=== PATIENT | female | born 1980 | race Two or more races ===

== ENCOUNTER 2025-04-09 16:13 | Inpatient (IN) | payer MEDICAID ==
[~2025-04-09] VITALS: Ht 175.3 cm; Wt 80.0 kg
[2025-04-09 17:19] LABS: Hematocrit 21.6 % (36.0-46.0); Hemoglobin 7.3 g/dL (12.2-16.2); Mean Corpuscular Hemoglobin 30.3 pg (28.0-32.0); Mean Corpuscular Volume 90.3 fL (80.0-100.0); Nucleated Red Blood Cells % 0.1 %
[2025-04-09] MEDS: SODIUM CHLORIDE 0.9% 1,000 ML IV ONE (17:30)
[2025-04-09 17:37] LABS: Alanine Aminotransferase 15 U/L (7-40); Albumin 3.8 g/dL (3.2-4.8); Alkaline Phosphatase 63 U/L (46-116); Anion Gap 8 (5-15); BUN/Creatinine Ratio 6.5 (10.0-20.0); Calcium 8.8 mg/dL (8.7-10.4); Carbon Dioxide 30 mmol/L (20-31); Sodium 145 mmol/L (136-145); Total Protein 5.9 g/dL (5.7-8.2)
[2025-04-09 17:39] LABS: Bilirubin, Total 0.2 mg/dL (0.2-1.0); Blood Urea Nitrogen 6 mg/dL (9-23); Chloride 107 mmol/L (98-107); Glucose 110 mg/dL (74-106); Potassium 3.5 mmol/L (3.5-5.1)
--- NOTE | 2025-04-09 18:06 | ED.PDOC ---
History of Present Illness HPI Comments HPI: Poor Historian. 44-year-old female sent by her home health nurse for low hemoglobin obtained yesterday of 6.4. Patient states in the last five days she has been feeling very weak with the exertional shortness of breath with minimal efforts at tachycardic with a exertion. Patient appears very pale for the last one-week. Denies bleeding from anywhere however she has black stool and is on iron pills daily. Patient is on Eliquis for PE. Patient had multiple sepsis and multiple hospitalizations or complications the last few months at [facility]. Patient never received any blood transfusions in the past. Patient complains of some fever. Past Medical History: Pulmonary embolus on Eliquis, septic knee, sepsis, tachycardic, hypertension, chronic pain syndrome, melena, oxygen dependent at [facility], respiratory failure, Past Surgical History: Three knee surgeries, back surgeries, spinal cord stimulator. Medication: Eliquis and iron pills daily. REVIEW OF SYSTEMS: CONSTITUTIONAL: Denies acute: diaphoresis, chills, HEAD: Denies acute: headache, photophobia Eyes: Denies acute: Double vision, vision loss, eye pain, eye discharge. EARS: Denies acute: tinnitus, hearing loss, ear discharge, ear pain, THROAT: Denies acute: sore throat, swelling, difficulty swallowing , pain with swallowing, change in voice. NECK: Denies acute: neck pain, neck swelling, stiff neck. HEART: Denies acute : chest pain, palpitations, LUNGS: Denies acute: wheezing, cough, hemoptysis ABDOMEN: Denies acute: abdominal pain, Nausea, Vomiting, diarrhea, hematemesis, hematochezia SKIN: Denies acute: rash, redness, lesions, itchiness. EXTREMITIES: Denies acute: calf pain, numbness, tingling, weakness, denies pain in extremity. Denies acute: Low back pain. Neuro: Denies acute: focal neurological deficit, motor or sensory focal neurological deficit, tremors, seizure like activity, confusion, dizziness, change in mental status, loss of bowel or bladder function, cauda equina like symptoms. : Denies acute: dysuria, hematuria, flank pain, increase in urinary frequency. PSYCH: Denies acute: hallucination, suicidal ideation, homicidal ideation. FEMALE: Denies acute: abnormal vaginal bleeding, foul odor, unusual discharge. PHYSICAL EXAM: General: ----moderate----acute distress, awake and alert. Head: normocephalic, atraumatic. Neck: supple, trachea is midline, no swelling. Throat: Normal phonation. Eyes:, no erythema, no purulent discharge, no proptosis, no icterus. Heart: regular rate, regular rhythm, no significant murmur appreciated. Lungs: no apparent respiratory distress, Able to speak in full sentences. No wheezing, no rhonchi, no crackles. No stridors Clear to auscultation bilaterally. Abdomen: non tender to palpation, non distended, soft, no guarding, no rebound, + bowel sounds. Neuro: Awake, Alert, oriented to name, self, situation, follows commands GCS=15. Speech is normal. Skin: no petechia, no purpura, no cyanosis, noted-pale, not jaundice. Lower extremities: --no - Pitting edema no deformity, no focal swelling, no calf TTP. Patient is wearing a right knee immobilizer ambulating with a cane Makes eye contact. moves all four extremities. Face: no apparent facial droop. ED COURSE: DISCLAIMER: This medical document was created using an electronic medical record system with voice recognition software and computerized dictation system. Although this document has been carefully reviewed, there might still be some phonetic and typographical errors. Occasional wrong-word or "sound-alike" substitutions may have occurred due to the inherent limitations of voice recognition software. These areas are purely typographical due to imperfections of the software programs and do not reflect any compromise in the patient's medical care. Please read the chart carefully and recognize, using context, where these substitutions have occurred. Chief Complaint: Abnormal LAB's Time Seen by MD: 16:53 Reviewed Notes: Allergies Allergies: Coded Allergies: Tramadol (Verified Allergy, Unknown, 04/09/25) Home Meds Reported Medications Eszopiclone (Eszopiclone) 2 Mg Tab, 2 MG PO for FOR SLEEP, TAB 04/10/25 Oxycodone W/ Acetaminophen (Percocet 5/325MG) 1 Tab Tb, 1 TAB PO BID, #60 TAB 04/10/25 Fluoxetine HCl (Fluoxetine) 60 Mg Tab, 20 MG PO, TAB 04/10/25 Alprazolam (Xanax) 0.5 Mg Tb, 1 TAB PO BID, #60 TAB 04/10/25 Ferrous Sulfate (Iron (Ferrous Sulfate)) 50 Mg Tab, 50 MG PO, TAB 04/10/25 Cholecalciferol (VITAMIN D) 5,000 Unit Tab, 5000 UNIT OR, TAB 04/10/25 Morphine Sulfate (Morphine Sulfate) 15 Mg Tab, 1 TAB PO BID, #60 TAB 04/10/25 Furosemide (Lasix) 20 Mg Tb, 1 TAB PO DAILY, #90 TAB 1 Refill 04/10/25 Baclofen (Baclofen) 10 Mg Tab, 10 MG PO Q8HR for 30 Days, MG 04/10/25 Pregabalin (Lyrica) 150 Mg Cap, 1 CAP PO BID, #60 CAP 5 Refills 04/10/25 Apixaban Base (ELIQUIS) 5 Mg Tab, 5 MG PO BID, TAB 04/10/25 Polyethylene Glycol 3350 (Miralax) 17 Gm Pow, 17 GM PO, POW 04/10/25 Sennosides (Senna) 8.6 Mg Cap, 8.6 MG PO, CAP 04/10/25 Atorvastatin Calcium (Lipitor) 20 Mg Tab, 1 TAB PO DAILY, #90 TAB 1 Refill 04/10/25 Information Source: Patient Mode of Arrival: Ambulatory Was a procedure done? Was a procedure done?: No Differential Dx Considerations may include: DDx include ACS, unstable angina, anxiety, PE, pneumothroax, neoplasm, cardiac ischemia, COPD, asthma, CHF, pleural effusion, tobacco abuse, pneumonia, hypoxia, hypercapnia, anemia., infection/sepsis., pulmonary edema. Asthma, Cardiac tamponade, infection. As far as anemia: chronic disease, GI bleed, blood loss, neoplasm, X-Ray, Labs, Meds, VS Vital Signs Date Time Temp Pulse Resp B/P (MAP) Pulse Ox O2 Delivery O2 Flow Rate FiO2 04/09/25 18:31 98.3 82 18 132/78 (96) 97 98.3 04/09/25 16:14 98.2 110 18 121/81 97 98.2 Lab Test 04/09/25 18:29 04/09/25 17:05 Range/Units Lactic Acid Level 0.9 0.4-2.0 mmol/L Troponin I High Sensitivity < 3 L < 3 L </=34 ng/L White Blood Count 4.3 L 4.4-10.8 10^3/uL Red Blood Count 2.40 L 4.0-5.20 10^6/uL Hemoglobin 7.3 L 12.2-16.2 g/dL Hematocrit 21.6 L 36.0-46.0 % Mean Corpuscular Volume 90.3 80.0-100.0 fL Mean Corpuscular Hemoglobin 30.3 28.0-32.0 pg Mean Corpuscular Hemoglobin Concent 33.5 32.0-36.0 g/dL Red Cell Distribution Width 17.3 H 11.8-14.3 % Platelet Count 302 140-450 10^3/uL Mean Platelet Volume 7.8 6.9-10.8 fL Neutrophils (%) (Auto) 46.8 37.0-80.0 % Lymphocytes (%) (Auto) 38.5 10.0-50.0 % Monocytes (%) (Auto) 6.9 0.0-12.0 % Eosinophils (%) (Auto) 7.0 0.0-7.0 % Basophils (%) (Auto) 0.8 0.0-2.0 % Neutrophils # (Auto) 2.0 1.6-8.6 10 ^3/uL Lymphocytes # (Auto) 1.7 0.4-5.4 10 ^3/uL Monocytes # (Auto) 0.3 0-1.3 10 ^3/uL Eosinophils # (Auto) 0.3 0-0.8 10 ^3/uL Basophils # (Auto) 0 0-0.2 10 ^3/uL Nucleated Red Blood Cells 0.1 % Sodium Level 145 136-145 mmol/L Potassium Level 3.5 3.5-5.1 mmol/L Chloride Level 107 98-107 mmol/L Carbon Dioxide Level 30 20-31 mmol/L Anion Gap 8 5-15 Blood Urea Nitrogen 6 L 9-23 mg/dL Creatinine 0.92 0.550-1.02 mg/dL Glomerular Filtration Rate Calc 78 >90 mL/min BUN/Creatinine Ratio 6.5 L 10.0-20.0 Serum Glucose 110 H 74-106 mg/dL Calcium Level 8.8 8.7-10.4 mg/dL Magnesium Level 1.9 1.6-2.6 mg/dL Total Bilirubin 0.2 0.2-1.0 mg/dL Aspartate Amino Transferase (AST) 16 13-40 U/L Alanine Aminotransferase (ALT) 15 7-40 U/L Alkaline Phosphatase 63 46-116 U/L Total Protein 5.9 5.7-8.2 g/dL Albumin 3.8 3.2-4.8 g/dL Time of 1ST Reevaluation: 00:00 Reevaluation 1ST: Unchanged Patient Education/Counseling: Diagnosis, Treatment Family Education/Counseling: Other Comments MDM: patient presented with the above HPI.----dyspnea/symptomatic anemia--workup was initiated. patient was found with the above mentioned diagnosis. the following medications were ordered: please refer to order lists of meds and tests obtained by myself Dr. Davila. Patient ED course and VS have been stabilized. Patient has been reassessed in [facility] ED and remained in a stable condition. Pertinent incidental findings were discussed with the patient and/or family. Patient/family voices understanding and is agreeable with plan. Patient has been observed in the ED adequate length of time to insure improvement/stability. Escalation of care considered: Consideration of escalation to observation or admission Patient was ADMITTED to the medicine team for further evaluation and treatment of their presentation. All the reports of any imaging studies that were ordered by myself were reviewed by myself. SEPSIS Sepsis Screen Date sepsis recognized/suspect: Apr 09, 2025 Time Sepsis recognized/suspect: 1618 Recent Procedure: No On Antibiotic Therapy: No Respiratory Rate >20: No Heart Rate >90: Yes Temp<36 C (96.8 F) or >38.3 C: No SBP <90 or MAP <65 mmHG: No New Acute Mental Status Change: No Is the patient on CPAP, BIPAP,: No Physician Orders It Operations Specialist (04/09/25 ) Electrocardigram (04/09/25 17:59) Chest Portable (04/09/25 17:59) Code Status (04/09/25 18:41) Oxygen Per Hour (04/09/25 18:41) Vital Signs Date Time Temp Pulse Resp B/P (MAP) Pulse Ox O2 Delivery O2 Flow Rate FiO2 04/09/25 18:31 98.3 82 18 132/78 (96) 97 98.3 04/09/25 16:14 98.2 110 18 121/81 97 98.2 Laboratory Tests Test 04/09/25 17:05 04/09/25 18:29 White Blood Count 4.3 10^3/uL (4.4-10.8) L Lactic Acid Level 0.9 mmol/L (0.4-2.0) Departure 1 Departure Time of Disposition: 18:01 Impression: Primary Impression: Exertional dyspnea Additional Impression: Symptomatic anemia Disposition: 09 ADMITTED INPATIENT Admit to: Tele Condition: Guarded Discharged With: Self Critical Care Note Critical Care Time?: No SANDRA DAVILA DO Apr 09, 2025 18:06
--- NOTE | 2025-04-09 18:27 | DVH ---
CHEST RADIOGRAPH Indication: sob Technique: Single frontal view of the chest was obtained Comparison: None FINDINGS: Lines and Tubes: None Lungs: No focal consolidation. Pleura: No effusion. No pneumothorax. Cardiomediastinal contours: Unremarkable Bones: No acute osseous abnormality. IMPRESSION: 1. No acute cardiopulmonary disease.
[2025-04-09] MEDS ORDERED: ONDANSETRON HCL 4 MG/2 ML VIAL IV PRN (18:45)
[2025-04-09] MEDS ORDERED: hydrALAZINE HCL 20 MG/ML VL IV PRN (18:45)
[2025-04-09] MEDS ORDERED: DOCUSATE SOD 100 MG CAP PO PRN (18:45)
[2025-04-09] MEDS ORDERED: ACETAMINOPHEN 325 MG TAB PO PRN (18:45)
--- NOTE | 2025-04-09 19:07 | DVHHP2 ---
History of Present Illness Reason for Visit: Symptomatic anemia History of Present Illness The patient is a 44-year-old female with past medical history of PE, right septic knee, chronic pain syndrome, and respiratory failure who presented to [facility] ED for evaluation of generalized weakness. Patient reports in the last 5 days, she has been feeling very weak with exertional shortness of breath, tachycardic with minimal efforts with exertion. Patient appears very pale for the last one-week. Patient was sent by her home health nurse for hemoglobin obtained yesterday of 6.4. Patient was seen and evaluated in the ED, laboratory data shows WBC 4.3, hemoglobin 7.3, hematocrit 21.6, platelets 302, sodium 145, potassium 3.5, BUN 6, creatinine 0.92, glucose 110, calcium 8.8, magnesium 1.9, troponin 3, blood pressure 132/78, heart rate 82, temperature 98.3 F, O2 saturation 97% on oxygen. Chest x-ray show no acute cardiopulmonary disease. Please see medication orders section in the computer. On my assessment, patient denies chest pain, no headache, dizziness, diaphoresis, currently on oxygen, no abdominal pain, no diarrhea, nausea or vomiting, no fever, no chills. Patient was admitted for further evaluation and medical management. Past Medical History Pulmonary embolus, Septic right knee, Chronic pain syndrome, Respiratory failure; oxygen-dependent at home Past Surgical History Three knee surgeries, back surgeries, spinal cord stimulator. Family History Reviewed, noncontributory to the management of this case. Past Social History The patient lives at home, denies smoking, alcohol or illicit drugs abuse. Review of Systems Constitutional: Yes: Weakness; No: Fever, Chills, Sweats, Malaise, Other Eyes: No: Pain, Vision change, Conjunctivae inflammation, Eyelid inflammation, Other, Redness ENT: No: Ear pain, Ear discharge, Nose pain, Nose discharge, Nose congestion, Mouth pain, Mouth swelling, Throat pain, Throat swelling, Other Respiratory: Shortness of breath; No: Cough, Dry, SOB with excertion, Wheezing, Hemoptysis, Pleuritic Pain, Sputum, Wheezing, Other Cardiovascular: No: Chest Pain, Palpitations, Orthopnea, Paroxysmal Noc. Dyspnea, Edema, Lt Headedness, Other Gastrointestinal: No: Nausea, Vomiting, Abdominal Pain, Diarrhea, Constipation, Melena, Hematochezia, Other Genitourinary: No Dysuria, No Frequency, No Incontinence, No Hematuria, No Retention, No Other Musculoskeletal: other (Right knee immobilizer); No: neck pain, shoulder pain, arm pain, back pain, hand pain, leg pain, foot pain Neurological: No: Weakness, Numbness, Incoordination, Change in speech, Confusion, Seizures, Other Allergies: Coded Allergies: Tramadol (Verified Allergy, Unknown, 04/09/25) Medications Current Medications Medications Dose Ordered Sig/Kathie Route Start Time Stop Time Status Last Admin Dose Admin Atorvastatin Calcium 20 mg HS PO 04/09/25 22:00 Hydralazine HCl 10 mg Q6HP PRN IV 04/09/25 18:45 Pantoprazole Sodium 40 mg DAILY IV 04/10/25 10:00 Acetaminophen/ Hydrocodone Bitart 1 tab Q4HP PRN PO 04/09/25 18:45 Ondansetron HCl 4 mg Q4HP PRN IV 04/09/25 18:45 Docusate Sodium 100 mg BIDPRN PRN PO 04/09/25 18:45 Acetaminophen 650 mg Q6HP PRN PO 04/09/25 18:45 Exam Vital Signs Vital Signs Date Time Temp Pulse Resp B/P (MAP) Pulse Ox O2 Delivery O2 Flow Rate FiO2 04/09/25 18:31 98.3 82 18 132/78 (96) 97 98.3 General Appearance: Alert, Oriented X3, Cooperative, No acute distress HEENT: Atraumatic, PERRLA, EOMI, Mucous membr. moist/pink Respiratory: Normal air movement, Other (O2 dependent) Cardiovascular: Regular rate, Normal S1, Normal S2, No murmurs Abdominal: Normal bowel sounds, Soft, No tenderness, No hepatospenomegaly, No masses Extremities: No clubbing, No cyanosis, No edema, Normal pulses, No tenderness/swelling Skin: No rashes, No breakdown, No significant lesion Neuro: Normal speech, Normal tone, Sensation intact, Cranial nerves 3-12 NL, Reflexes 2+, Other (Generalized weakness) Psych/Mental Status: Mental status NL, Mood NL Labs/Xrays Labs Test 04/09/25 18:29 04/09/25 17:05 Range/Units Lactic Acid Level 0.9 0.4-2.0 mmol/L Troponin I High Sensitivity < 3 L </=34 ng/L White Blood Count 4.3 L 4.4-10.8 10^3/uL Red Blood Count 2.40 L 4.0-5.20 10^6/uL Hemoglobin 7.3 L 12.2-16.2 g/dL Hematocrit 21.6 L 36.0-46.0 % Mean Corpuscular Volume 90.3 80.0-100.0 fL Mean Corpuscular Hemoglobin 30.3 28.0-32.0 pg Mean Corpuscular Hemoglobin Concent 33.5 32.0-36.0 g/dL Red Cell Distribution Width 17.3 H 11.8-14.3 % Platelet Count 302 140-450 10^3/uL Mean Platelet Volume 7.8 6.9-10.8 fL Neutrophils (%) (Auto) 46.8 37.0-80.0 % Lymphocytes (%) (Auto) 38.5 10.0-50.0 % Monocytes (%) (Auto) 6.9 0.0-12.0 % Eosinophils (%) (Auto) 7.0 0.0-7.0 % Basophils (%) (Auto) 0.8 0.0-2.0 % Neutrophils # (Auto) 2.0 1.6-8.6 10 ^3/uL Lymphocytes # (Auto) 1.7 0.4-5.4 10 ^3/uL Monocytes # (Auto) 0.3 0-1.3 10 ^3/uL Eosinophils # (Auto) 0.3 0-0.8 10 ^3/uL Basophils # (Auto) 0 0-0.2 10 ^3/uL Nucleated Red Blood Cells 0.1 % Sodium Level 145 136-145 mmol/L Potassium Level 3.5 3.5-5.1 mmol/L Chloride Level 107 98-107 mmol/L Carbon Dioxide Level 30 20-31 mmol/L Anion Gap 8 5-15 Blood Urea Nitrogen 6 L 9-23 mg/dL Creatinine 0.92 0.550-1.02 mg/dL Glomerular Filtration Rate Calc 78 >90 mL/min BUN/Creatinine Ratio 6.5 L 10.0-20.0 Serum Glucose 110 H 74-106 mg/dL Calcium Level 8.8 8.7-10.4 mg/dL Magnesium Level 1.9 1.6-2.6 mg/dL Total Bilirubin 0.2 0.2-1.0 mg/dL Aspartate Amino Transferase (AST) 16 13-40 U/L Alanine Aminotransferase (ALT) 15 7-40 U/L Alkaline Phosphatase 63 46-116 U/L Total Protein 5.9 5.7-8.2 g/dL Albumin 3.8 3.2-4.8 g/dL PATIENT: AHMET BAKER ACCT: [id number] UNIT: [id number] : 1980 LOC: ER ROOM / BED: / AGE / SEX: 44 / F ADM STATUS: REG ER SERVICE 0262 ORDERING PHYSICIAN: SANDRA RICE DO PROCEDURE(s): CXRP - CHEST PORTABLE REASON: sob ORDER NUMBER(s): [id number], ACCESSION NUMBER(s): [id number] CHEST RADIOGRAPH Indication: sob Technique: Single frontal view of the chest was obtained Comparison: None FINDINGS: Lines and Tubes: None Lungs: No focal consolidation. Pleura: No effusion. No pneumothorax. Cardiomediastinal contours: Unremarkable Bones: No acute osseous abnormality. IMPRESSION: 1. No acute cardiopulmonary disease. SEPSIS Sepsis Screen Date sepsis recognized/suspect: Apr 09, 2025 Time Sepsis recognized/suspect: 1618 Recent Procedure: No On Antibiotic Therapy: No Respiratory Rate >20: No Heart Rate >90: Yes Temp<36 C (96.8 F) or >38.3 C: No SBP <90 or MAP <65 mmHG: No New Acute Mental Status Change: No Is the patient on CPAP, BIPAP,: No Physician Orders Plasterer Journeyman (04/09/25 ) Type And Screen (04/09/25 16:53) Electrocardigram (04/09/25 17:59) Urinalysis (04/09/25 17:59) Chest Portable (04/09/25 17:59) Troponin-I Hs (04/09/25 20:59) Atorvastatin (Lipitor) (04/09/25 22:00) Hydralazine Injection (Apresoline Inject (04/09/25 18:45) Pantoprazole (Protonix) (04/10/25 10:00) Allergies (04/09/25 18:41) Code Status (04/09/25 18:41) Oxygen Per Hour (04/09/25 18:41) Hydrocodone-Acet 5/325mg Tab ([place] 5/32 (04/09/25 18:45) Ondansetron Hcl (Zofran) (04/09/25 18:45) Docusate Sodium Capsule (Colace Capsule) (04/09/25 18:45) Fall Risk Precautions In Place QSHIFT (04/09/25 18:41) Complete Blood Count (04/10/25 04:00) Comprehensive Metabolic Panel (04/10/25 04:00) Cardiac Diet-2gna,Lofat,Lochol (04/10/25 Breakfast) Condition: Serious (04/09/25 18:41) Acetaminophen Tablet (Tylenol Tablet) (04/09/25 18:45) Maintain Bed Rest (04/09/25 18:41) Sequential Compression Device (04/09/25 ) Admit (04/09/25 19:05) Nitroglycerin Sublingual (Ntrostat Subli (04/09/25 19:15) Morphine Sulfate Injection (04/09/25 19:15) Stat Ekg For Chest Pain (04/09/25 19:05) Notify Md Of Changes From Base (04/09/25 19:05) Clinical Nursing Director For 24 Hours (04/09/25 19:05) Emergency Dysrhythmia Protocol (04/09/25 19:05) Rhythm Strips Once Every Shift (04/09/25 19:05) Oxygen By Nasal Cannula (04/09/25 19:05) Vital Signs Date Time Temp Pulse Resp B/P (MAP) Pulse Ox O2 Delivery O2 Flow Rate FiO2 04/09/25 18:31 98.3 82 18 132/78 (96) 97 98.3 04/09/25 16:14 98.2 110 18 121/81 97 98.2 Laboratory Tests Test 04/09/25 17:05 04/09/25 18:29 White Blood Count 4.3 10^3/uL (4.4-10.8) L Lactic Acid Level 0.9 mmol/L (0.4-2.0) Medications Medications Dose Ordered Sig/Kathie Route Start Time Stop Time Status Last Admin Dose Admin Sodium Chloride 1,000 ml @ 1,000 mls/hr Q1H ONCE IV 04/09/25 17:30 04/09/25 18:29 DC 04/09/25 17:30 1,000 MLS/HR Assessment/Plan Assessment/Plan Symptomatic anemia Exertional dyspnea Anemia, unspecified Generalized weakness Plan 1. Admit to telemetry unit 2. Breathing treatment 3. Pain control management 4. Management of fluids and electrolytes 5. Consultation for pulmonology 6. Diagnostic tests chest x-ray 7. DVT prophylaxis-on Eliquis 8. Repeat labs CBC, CMP in a.m. 9. Continue with current medical management 10. Treatment plan discussed with patient and RN. Patient verbalized understanding. Plan discussed with: Patient, Other (RN) My Orders Orders - VALE VALE DNP Procedure Category Date Status Time Atorvastatin (Lipitor) PHA 04/09/25 In Process 22:00 Hydralazine Injection PHA 04/09/25 In Process (Apresoline Inject 18:45 Pantoprazole PHA 04/10/25 In Process (Protonix) 10:00 Allergies JEAN 04/09/25 In Process 18:41 Code Status CODE 04/09/25 Transmitted 18:41 Oxygen Per Hour RT 04/09/25 Transmitted 18:41 Hydrocodone-Acet PHA 04/09/25 In Process 5/325mg Tab ([place] 18:45 Ondansetron Hcl PHA 04/09/25 In Process (Zofran) 18:45 Docusate Sodium PHA 04/09/25 In Process Capsule (Colace 18:45 Fall Risk Precautions JEAN 04/09/[address] 18:41 Complete Blood Count LAB 04/10/25 Verified 04:00 Comprehensive LAB 04/10/25 Verified Metabolic Panel 04:00 Cardiac DIET 04/10/25 Transmitted Diet-2gna,Lofat,Lochol Breakfast Condition: Serious JEAN 04/09/25 In Process 18:41 Acetaminophen Tablet PHA 04/09/25 In Process (Tylenol Tablet) 18:45 Maintain Bed Rest JEAN 04/09/25 In Process 18:41 Sequential JEAN 04/09/25 In Process Compression Device Admit ADMIT 04/09/25 Verified 19:05 Nitroglycerin PHA 04/09/25 Verified Sublingual (Ntrostat 19:15 Morphine Sulfate PHA 04/09/25 Verified Injection 19:15 Stat Ekg For Chest JEAN 04/09/25 Verified Pain 19:05 Notify Of Changes JEAN 04/09/25 Verified From Base 19:05 Clinical Nursing Director For JEAN 10/4/25 Verified 24 Hours 19:05 Emergency Dysrhythmia JEAN 04/09/25 Verified Protocol 19:05 Rhythm Strips Once JEAN 04/09/25 Verified Every Shift 19:05 Oxygen By Nasal RT 04/09/25 Verified Cannula 19:05 Problem List: (1) Symptomatic anemia (2) Exertional dyspnea (3) Anemia, unspecified (4) Generalized weakness Date of Service: Apr 09, 2025 Billing Provider: VALE VALE DNP Common Visit Codes: [id number] INP/OBS CARE (HIGH) VALE VALE DNP Apr 09, 2025 19:07
[2025-04-09] MEDS: PANTOPRAZOLE 40 MG/10 ML VIAL INJ IV ONE (19:12)
[2025-04-09 19:13] VITALS: PULSE 82; RESP 18; O2SAT 97
[2025-04-09] MEDS ORDERED: MORPHINE SULFATE INJ 2 MG/ml SYRG IV PRN (19:15)
[2025-04-09] MEDS ORDERED: NITROGLYCERIN 0.4 MG SL TAB SL PRN (19:15)
[2025-04-09 19:24] LABS: Urine Protein, UAD TRACE (Negative)
[2025-04-09 20:39] VITALS: BP 140/90; PULSE 80; RESP 16; TEMP 97.9; O2SAT 100
[2025-04-09 20:45] VITALS: PULSE 82
[2025-04-09 21:00] VITALS: BP 140/90; PULSE 80; RESP 16; TEMP 97.9; O2SAT 100
[2025-04-09] MEDS: ATORVASTATIN 20 MG TAB PO SCH (21:08)
[2025-04-09] MEDS: HYDROcodone-ACET 5/325MG TAB PO PRN (21:08)
[2025-04-09] MEDS ORDERED: ALBUTEROL SULF 2.5 MG/0.5ML(0.5%) NEB SOLN NEB PRN (21:15)
[2025-04-09] MEDS ORDERED: IPRATROPIUM BROM 0.5 MG/2.5ML INH SOL NEB PRN (21:15)
[2025-04-09 21:22] VITALS: BP 132/78; PULSE 88; RESP 18; TEMP 98.3; O2SAT 97
[2025-04-09] MEDS: METOPROLOL TARTRATE 25 MG TAB PO SCH (21:57)
[2025-04-09] MEDS: OXYCODONE W/ ACETAMINOPHEN 5/325MG TABLET PO PRN (22:48)
[2025-04-10] VITALS (15 sets, daily range): BP systolic 102–149; BP diastolic 67–105; PULSE 73–88; RESP 15–18; TEMP 97.5–98.8; O2SAT 97–100
[2025-04-10] MEDS ORDERED: APIX5TAB PO
[2025-04-10] MEDS ORDERED: POLY335015 PO
[2025-04-10] MEDS ORDERED: PREG150C PO
[2025-04-10] MEDS ORDERED: MORP15TA PO
[2025-04-10] MEDS ORDERED: CHOL500021 OR
[2025-04-10] MEDS ORDERED: FERR1TAB36 PO
[2025-04-10] MEDS ORDERED: BACL10TA PO
[2025-04-10] MEDS ORDERED: FURO1TAB33 PO
[2025-04-10] MEDS ORDERED: SENN8.6C PO
[2025-04-10] MEDS ORDERED: ATOR20TA PO
[2025-04-10] MEDS ORDERED: ALPR0.5T PO (00:01)
[2025-04-10] MEDS ORDERED: PERCOT PO (00:01)
[2025-04-10] MEDS ORDERED: ESZO1TAB PO (00:01)
[2025-04-10] MEDS ORDERED: FLUO60TA7 PO (00:01)
[2025-04-10] MEDS: HYDROmorphone HCL 2 MG/ML VL/or syr IV PRN (01:01)
[2025-04-10] MEDS ORDERED: BACLOFEN 10 MG TAB PO SCH (03:19)
[2025-04-10] MEDS: PREGABALIN CAPSULE 75 MG CAP PO SCH (03:30)
[2025-04-10] MEDS: BACLOFEN 10 MG TAB PO SCH (03:30)
[2025-04-10] MEDS: ALPRAZolam 0.5 MG TAB PO PRN (04:17)
[2025-04-10 05:47] LABS: Hematocrit 18.8 % (36.0-46.0); Mean Corpuscular Hemoglobin 30.0 pg (28.0-32.0); Mean Corpuscular Volume 89.9 fL (80.0-100.0); Nucleated Red Blood Cells % 0.1 %
[2025-04-10 05:52] LABS: Hemoglobin 6.3 g/dL (12.2-16.2)
[2025-04-10 06:04] LABS: Alanine Aminotransferase 92 U/L (7-40); Albumin 3.1 g/dL (3.2-4.8); Alkaline Phosphatase 133 U/L (46-116); Anion Gap 6 (5-15); BUN/Creatinine Ratio 7.4 (10.0-20.0); Blood Urea Nitrogen 5 mg/dL (9-23); Calcium 8.1 mg/dL (8.7-10.4); Carbon Dioxide 30 mmol/L (20-31); Chloride 110 mmol/L (98-107); Glucose 91 mg/dL (74-106); Potassium 3.6 mmol/L (3.5-5.1); Sodium 146 mmol/L (136-145); Total Protein 4.8 g/dL (5.7-8.2)
[2025-04-10 06:11] LABS: Bilirubin, Total 0.2 mg/dL (0.2-1.0)
[2025-04-10] MEDS: PANTOPRAZOLE 40 MG/10 ML VIAL INJ IV SCH (09:21)
[2025-04-10] MEDS ORDERED: MORPHINE SULFATE INJ 2 MG/ml SYRG IV PRN (15:00)
[2025-04-10] MEDS: MORPHINE SULFATE 4 MG/ML SYR/VIAL IV PRN (15:35)
[2025-04-11] VITALS (11 sets, daily range): BP systolic 116–155; BP diastolic 73–104; PULSE 66–108; RESP 16–19; TEMP 97.9–98.4; O2SAT 95–100
[2025-04-11] MEDS: FUROSEMIDE 20 MG/2 ML VIAL IV SCH (09:43)
[2025-04-11] MEDS: APIXABAN 5 MG TAB PO ONE (12:25)
--- NOTE | 2025-04-11 13:00 | DVH ---
Technique: Real-time ultrasound imaging, with color Doppler and compression of the bilateral common femoral vein, femoral vein, greater saphenous vein, and popliteal vein. Indication: Rule Out DVT Comparison: None Findings: There is normal compressibility and flow augmentation in all of the imaged deep veins. There are no f illing defects. Impression: No evidence of DVT in the bilateral lower extremities
--- NOTE | 2025-04-11 13:36 | DVHINCON2 ---
GI Consult Consult Note GI consult note Date of Consultation: 04/11/2025 Chief Complaint: Rule out GI bleed Referring Physician: Dr. Tomas H&P: 44-year-old female admitted with complains of generalized weakness for the past six days. Patient admits to falling backwards about a week ago. Complaining of lower abdominal pain. Patient has nausea no vomiting. Denies melena or red blood in stool. Patient admits to feeling weak with exertional shortness of farrah ath, tachycardia. Pulmonary consult is pending Patient has history of PE x2 in the past treated with Eliquis. Also diagnosed w ith anemia in September of 2024 and treated with iron supplements No EGD or colonoscopy in past Past Medical History: Pulmonary embolus, Septic right knee, Chronic pain syndrome, Respiratory failure; oxygen-dependent at home Past Surgical History: Three knee surgeries, back surgeries, spinal cord stimulator. Social History: NO smoking, drinking ETOH and use of illegal drugs. Family History: Noncontributory Review of Systems: Constitutional: no fever, chill, weight loss HEENT: no eye pain, no hearing loss, no oral lesion, no scleral icterus Heart: no chest pain, no chest pressure Lung: no cough, no dyspnea with exertion Abdomen: see HPI Physical exam: General: NAD, AAOX3 Chest: lung castorena clear to auscultation Heart: RRR, no murmur Abdomen: non-distended,+ [id number] lower abdominal tenderness to palpation, +BS Labs:Labs Test 04/09/25 18:29 04/09/25 17:05 Range/Units Lactic Acid Level 0.9 0.4-2.0 mmol/L Troponin I High Sensitivity < 3 L </=34 ng/L White Blood Count 4.3 L 4.4-10.8 10^3/uL Red Blood Count 2.40 L 4.0-5.20 10^6/uL Hemoglobin 7.3 L 12.2-16.2 g/dL Hematocrit 21.6 L 36.0-46.0 % Mean Corpuscular Volume 90.3 80.0-100.0 fL Mean Corpuscular Hemoglobin 30.3 28.0-32.0 pg Mean Corpuscular Hemoglobin Concent 33.5 32.0-36.0 g/dL Red Cell Distribution Width 17.3 H 11.8-14.3 % Platelet Count 302 140-450 10^3/uL Mean Platelet Volume 7.8 6.9-10.8 fL Neutrophils (%) (Auto) 46.8 37.0-80.0 % Lymphocytes (%) (Auto) 38.5 10.0-50.0 % Monocytes (%) (Auto) 6.9 0.0-12.0 % Eosinophils (%) (Auto) 7.0 0.0-7.0 % Basophils (%) (Auto) 0.8 0.0-2.0 % Neutrophils # (Auto) 2.0 1.6-8.6 10 ^3/uL Lymphocytes # (Auto) 1.7 0.4-5.4 10 ^3/uL Monocytes # (Auto) 0.3 0-1.3 10 ^3/uL Eosinophils # (Auto) 0.3 0-0.8 10 ^3/uL Basophils # (Auto) 0 0-0.2 10 ^3/uL Nucleated Red Blood Cells 0.1 % Sodium Level 145 136-145 mmol/L Potassium Level 3.5 3.5-5.1 mmol/L Chloride Level 107 98-107 mmol/L Carbon Dioxide Level 30 20-31 mmol/L Anion Gap 8 5-15 Blood Urea Nitrogen 6 L 9-23 mg/dL Creatinine 0.92 0.550-1.02 mg/dL Glomerular Filtration Rate Calc 78 >90 mL/min BUN/Creatinine Ratio 6.5 L 10.0-20.0 Serum Glucose 110 H 74-106 mg/dL Calcium Level 8.8 8.7-10.4 mg/dL Magnesium Level 1.9 1.6-2.6 mg/dL Total Bilirubin 0.2 0.2-1.0 mg/dL Aspartate Amino Transferase (AST) 16 13-40 U/L Alanine Aminotransferase (ALT) 15 7-40 U/L Alkaline Phosphatase 63 46-116 U/L Total Protein 5.9 5.7-8.2 g/dL Albumin 3.8 3.2-4.8 g/dL Imaging: Assessment: Severe anemia Generalized weakness History of PE on Eliquis Transaminitis Plan: Discussed with Dr. Santiago Gaxiola for occult blood Iron panel, B12, hepatitis panel, CBC Ultrasound of abdomen Protonix and Zofran Possible EGD tomorrow discussed with patient including discussion of risks and benefits of procedure and sedation, patient at this time refuses EGD would like to feel better Pain management per hospitalist Supportive care Plan discussed with patient, family at bedside and RN Thank you for this consult Date of Service: Apr 11, 2025 Billing Provider: OTTO NIX Common Visit Codes: CONSULT ONLY Consultation Codes: [id number] CONSULT <60MIN OTTO NIX Apr 11, 2025 13:36
--- NOTE | 2025-04-11 14:12 | DVH ---
INDICATION: elevated LFTs TECHNIQUE: Multiple real-time sonographic images were obtained of the right upper quadrant. COMPARISON: None FINDINGS: The liver demonstrates homogenous echotexture without focal mass lesions. The liver measure s 16 cm. The common duct measures 8 mm and is mildly dilated. Gallbladder is surgically absent. The right kidney measures 9.8 cm. The right kidney is normal in contour, size, and shape. The echoge nicity is normal. There is no hydronephrosis. The pancreas is not well visualized due to overlying bowel gas. IMPRESSION: Gallbladder is surgically absent. Mild extrahepatic biliary ductal dilatation measuring 8 mm related to post reservoir effect given post cholecystectomy state. Correlate with bilirubin levels.
[2025-04-11 15:07] LABS: Hematocrit 28.9 % (36.0-46.0); Hemoglobin 9.6 g/dL (12.2-16.2); Mean Corpuscular Hemoglobin 29.7 pg (28.0-32.0); Mean Corpuscular Volume 89.0 fL (80.0-100.0); Nucleated Red Blood Cells % 0.1 %
[2025-04-11 15:28] LABS: Anion Gap 9 (5-15); BUN/Creatinine Ratio 8.5 (10.0-20.0); Calcium 8.9 mg/dL (8.7-10.4); Carbon Dioxide 30 mmol/L (20-31); Chloride 103 mmol/L (98-107); Glucose 97 mg/dL (74-106); Potassium 3.6 mmol/L (3.5-5.1); Sodium 142 mmol/L (136-145); Total Protein 6.3 g/dL (5.7-8.2)
[2025-04-11 15:29] LABS: Albumin 4.1 g/dL (3.2-4.8); Bilirubin, Total 0.4 mg/dL (0.2-1.0)
[2025-04-11 15:30] LABS: Alanine Aminotransferase 77 U/L (7-40); Alkaline Phosphatase 162 U/L (46-116); Blood Urea Nitrogen 6 mg/dL (9-23)
[2025-04-11 15:40] LABS: Iron 18.0 ug/dL (50-170)
[2025-04-11 15:42] LABS: Total Iron Binding Capacity 381.0 ug/dL (250-425)
[2025-04-11 17:01] LABS: Hepatitis A Total Antibody Positive (Negative); Hepatitis B Surface Antigen Negative (Negative); Hepatitis C Antibody Negative (Negative)
--- NOTE | 2025-04-11 17:36 | DVHINCON2 ---
Date of service: Apr 10, [address] Tomas Reason for Consultation Acute respiratory failure History of Present Illness History Source: Patient Exam Limitations: No limitations HPI Patient is a 44-year old lady with a history of recurrent PE on Eliquis and multiple admissions who presented with generalized weakness. Was seen in the emergency room where she was found to be anemic requiring transfusion of blood products and patient was admitted for further workup. Patient required supplemental oxygen and pulmonology was consulted to assist in management. Home Meds Reported Medications Eszopiclone (Eszopiclone) 2 Mg Tab, 2 MG PO for FOR SLEEP, TAB 04/10/25 Oxycodone W/ Acetaminophen (Percocet 5/325MG) 1 Tab Tb, 1 TAB PO BID, #60 TAB 04/10/25 Fluoxetine HCl (Fluoxetine) 60 Mg Tab, 20 MG PO, TAB 04/10/25 Alprazolam (Xanax) 0.5 Mg Tb, 1 TAB PO BID, #60 TAB 04/10/25 Ferrous Sulfate (Iron (Ferrous Sulfate)) 50 Mg Tab, 50 MG PO, TAB 04/10/25 Cholecalciferol (VITAMIN D) 5,000 Unit Tab, 5000 UNIT OR, TAB 04/10/25 Morphine Sulfate (Morphine Sulfate) 15 Mg Tab, 1 TAB PO BID, #60 TAB 04/10/25 Furosemide (Lasix) 20 Mg Tb, 1 TAB PO DAILY, #90 TAB 1 Refill 04/10/25 Baclofen (Baclofen) 10 Mg Tab, 10 MG PO Q8HR for 30 Days, MG 04/10/25 Pregabalin (Lyrica) 150 Mg Cap, 1 CAP PO BID, #60 CAP 5 Refills 04/10/25 Apixaban Base (ELIQUIS) 5 Mg Tab, 5 MG PO BID, TAB 04/10/25 Polyethylene Glycol 3350 (Miralax) 17 Gm Pow, 17 GM PO, POW 04/10/25 Sennosides (Senna) 8.6 Mg Cap, 8.6 MG PO, CAP 04/10/25 Atorvastatin Calcium (Lipitor) 20 Mg Tab, 1 TAB PO DAILY, #90 TAB 1 Refill 04/10/25 Past Medical History Cardiac: No pertinent Hx Pulmonary: Pulmonary embolus, Other (long covid ) Central Nervous System: No pertinent Hx GI: No pertinent Hx Hemotology/Oncology: No pertinent Hx Hepatobiliary: No pertinent Hx Psychiatric: No pertinent Hx Musculoskeletal: No pertinent Hx Rheumotologic: No pertinent Hx Infectious Disease: No peritnent Hx ENT: No pertinent Hx Renal/: No pertinent Hx Endocrine: No pertinent Hx Dermatology: No pertinent Hx Past Surgical History: No pertinent Hx Family History: Hypertension Patient Family History: Anxiety disorder FH: depression FH: diabetes mellitus FH: heart attack FH: hypertension FH: obesity Smoker: No Hx (Negative) Alocohol: None Drugs: None Lives with: With family Domestic Violence: Neg Review of Systems Constitutional: Weakness Ears, Nose, & Throat: No symptom reported Eyes: No symptom reported Pulmonary/Respiratory: No symptom reported Cardiovascular: No symptom reported Gastrointestinal: No symptom reported Genitourinary: No symptom reported Musculoskeletal: No symptom reported Skin: No symptom reported Psychiatric: No symptom reported Endocrine: No symptom reported Hemotologic/Lymphatic: No symptom reported H&P Exam Vital Signs Vital Signs Date Time Temp Pulse Resp B/P (MAP) Pulse Ox O2 Delivery O2 Flow Rate FiO2 04/11/25 17:00 98.4 90 18 147/100 (116) 100 98.4 04/11/25 10:00 Nasal Cannula 3.0 04/11/25 10:00 32 General Appeara: Well developed, Well nourished, Normal Appearance Head Exam: Normal inspection Neck Exam: Normal inspection, Non-tender, Normal alignment Eye Exam: bilateral eye Normal inspection, bilateral eye PERRL, bilateral eye EOMI Ear Exam: bilateral ear Auricle normal, bilateral ear Canal normal, bilateral ear TM normal Nasal Exam: Normal inspection Mouth: Normal Inspection Pulmonary/Respiratory: Decreased breath sounds Cardiovascular/Chest: Normal inspection Peripheral Pulses: 4+ Radial (R), 4+ Radial (L), 4+ Brachial (R), 4+ Brachial (L) Abdominal Exam: Normal bowel sounds Labs/Xrays Labs Test 04/11/25 14:25 04/09/25 19:09 04/09/25 18:29 04/09/25 17:05 Range/Units White Blood Count 3.8 L 4.4-10.8 10^3/uL Red Blood Count 3.25 L 4.0-5.20 10^6/uL Hemoglobin 9.6 #L 12.2-16.2 g/dL Hematocrit 28.9 #L 36.0-46.0 % Mean Corpuscular Volume 89.0 80.0-100.0 fL Mean Corpuscular Hemoglobin 29.7 28.0-32.0 pg Mean Corpuscular Hemoglobin Concent 33.3 32.0-36.0 g/dL Red Cell Distribution Width 17.3 H 11.8-14.3 % Platelet Count 323 140-450 10^3/uL Mean Platelet Volume 7.9 6.9-10.8 fL Neutrophils (%) (Auto) 57.8 37.0-80.0 % Lymphocytes (%) (Auto) 30.1 10.0-50.0 % Monocytes (%) (Auto) 7.8 0.0-12.0 % Eosinophils (%) (Auto) 3.9 0.0-7.0 % Basophils (%) (Auto) 0.4 0.0-2.0 % Neutrophils # (Auto) 2.2 1.6-8.6 10 ^3/uL Lymphocytes # (Auto) 1.2 0.4-5.4 10 ^3/uL Monocytes # (Auto) 0.3 0-1.3 10 ^3/uL Eosinophils # (Auto) 0.1 0-0.8 10 ^3/uL Basophils # (Auto) 0 0-0.2 10 ^3/uL Nucleated Red Blood Cells 0.1 % Sodium Level 142 136-145 mmol/L Potassium Level 3.6 3.5-5.1 mmol/L Chloride Level 103 98-107 mmol/L Carbon Dioxide Level 30 20-31 mmol/L Anion Gap 9 5-15 Blood Urea Nitrogen 6 L 9-23 mg/dL Creatinine 0.71 0.550-1.02 mg/dL Glomerular Filtration Rate Calc 107 >90 mL/min BUN/Creatinine Ratio 8.5 L 10.0-20.0 Serum Glucose 97 74-106 mg/dL Calcium Level 8.9 8.7-10.4 mg/dL Iron Level 18 L 50-170 ug/dL Total Iron Binding Capacity 381 250-425 ug/dL Percent Iron Saturation 4.7 L 15-50 % Total Bilirubin 0.4 0.2-1.0 mg/dL Aspartate Amino Transferase (AST) 53 H 13-40 U/L Alanine Aminotransferase (ALT) 77 H 7-40 U/L Alkaline Phosphatase 162 H 46-116 U/L Total Protein 6.3 5.7-8.2 g/dL Albumin 4.1 3.2-4.8 g/dL Hepatitis A Antibody Total Positive H Negative Hepatitis B Surface Antigen Negative Negative Hepatitis B Surface Antibody Negative Negative Hepatitis B Core Total Antibody Negative Negative Hepatitis C Antibody Negative Negative Urine Color Yellow Yellow Urine Clarity Clear Clear Urine pH 6.5 5.0-9.0 Urine Specific [place] 1.026 1.001-1.035 Urine Protein Trace H Negative Urine Ketones Negative Negative Urine Blood Negative Negative /uL Urine Nitrite Negative Negative Urine Bilirubin Negative Negative Urine Urobilinogen Normal Negative mg/dL Urine Leukocyte Esterase Negative Negative /uL Urine RBC None seen 0 - 4 /hpf Urine Microscopic WBC 2 0-5 /HPF Urine Squamous Epithelial Cells Few <5 /hpf Urine Bacteria None seen None Seen /hpf Urine Mucus Few None Seen Urine Glucose Normal Normal mg/dL Lactic Acid Level 0.9 0.4-2.0 mmol/L Troponin I High Sensitivity < 3 L </=34 ng/L Magnesium Level 1.9 1.6-2.6 mg/dL Microbiology Date/Time Source Procedure Growth Status 04/09/25 23:05 Nose MRSA Screen - Final Complete Assessment/Plan Plan Impression Chronic oxygen dependency Recurrent pulmonary embolism Deconditioning Anemia Patient seen and examined Events Low oxygen requirements On 2 liters nasal cannula Vital signs stable Labs and imaging reviewed Chest x-ray unremarkable Management Supplemental oxygen Titrate to maintain sats 90% or above Incentive spirometry Bronchodilators Monitor renal function Monitor electrolytes Supplement as needed Monitor hemoglobin Transfuse blood products as needed Restart Eliquis Obtain echocardiogram Obtain ultrasound of the lower extremities to rule out clots DVT prophylaxis Plan discussed with: Patient AJITH RODRIGUEZ MD Apr 11, 2025 17:36
--- NOTE | 2025-04-11 18:32 | DVHPN2 ---
Progress Note - Dictate Date Seen: Apr 11, 2025 Medical Necessity Reason Pt with a Central, PICC or Fol: No vital signs Vital Sign Date Time Temp Pulse Resp B/P (MAP) Pulse Ox O2 Delivery O2 Flow Rate FiO2 04/11/25 17:59 100 18 147/100 04/11/25 17:00 98.4 100 98.4 04/11/25 10:00 Nasal Cannula 3.0 04/11/25 10:00 32 Total Intake and Output 04/10/25 04/10/25 04/11/25 15:00 23:00 07:00 Intake Total 1140 ml 20 ml Output Total 200 ml Balance 1140 ml -180 ml medications Current Medications Medications Dose Ordered Sig/Kathie Route Start Time Stop Time Status Last Admin Dose Admin Atorvastatin Calcium 20 mg HS PO 04/09/25 22:00 04/10/25 21:29 20 MG Hydralazine HCl 10 mg Q6HP PRN IV 04/09/25 18:45 Pantoprazole Sodium 40 mg DAILY IV 04/10/25 10:00 04/11/25 09:43 40 MG Acetaminophen/ Hydrocodone Bitart 1 tab Q4HP PRN PO 04/09/25 18:45 04/10/25 09:22 1 TAB Ondansetron HCl 4 mg Q4HP PRN IV 04/09/25 18:45 Docusate Sodium 100 mg BIDPRN PRN PO 04/09/25 18:45 Acetaminophen 650 mg Q6HP PRN PO 04/09/25 18:45 Nitroglycerin 0.4 mg Q5MINP PRN SL 04/09/25 19:15 Morphine Sulfate 2 mg Q30M PRN IV 04/09/25 19:15 Alprazolam 0.5 mg Q8HPRN PRN PO 04/09/25 21:15 04/10/25 22:31 0.5 MG Metoprolol Tartrate 25 mg BID PO 04/09/25 22:00 04/09/25 21:57 25 MG Aspirin 81 mg DAILY PO 04/10/25 10:00 04/10/25 09:23 81 MG Albuterol 2.5 mg Q4HPRN PRN NEB 04/09/25 21:15 Ipratropium Fay 0.5 mg Q4HPRN PRN NEB 04/09/25 21:15 Oxycodone/ Acetaminophen 2 tab Q6HP PRN PO 04/09/25 22:45 04/11/25 12:25 2 TAB Hydromorphone HCl 0.5 mg Q4HPRN PRN IV 04/10/25 00:45 04/11/25 17:59 0.5 MG Pregabalin 150 mg BID PO 04/10/25 03:09 04/11/25 09:42 150 MG Baclofen 20 mg TID PO 04/10/25 03:19 04/11/25 13:52 20 MG Furosemide 20 mg DAILY IV 04/11/25 10:00 04/11/25 09:43 20 MG Morphine Sulfate 2 mg Q2HPRN PRN IV 04/10/25 15:30 04/11/25 15:39 2 MG Apixaban 5 mg BID PO 04/11/25 22:00 laboratory and microbiology Laboratory Tests 04/11/25 14:25 Test 04/11/25 14:25 Range/Units Serum Glucose 97 74-106 mg/dL Assessment/Plan Impression Chronic oxygen dependency Recurrent pulmonary embolism Deconditioning Anemia Patient seen and examined Events Low oxygen requirements On 2 liters nasal cannula No acute events Labs and imaging reviewed Chest x-ray unremarkable Management Supplemental oxygen Titrate to maintain sats 90% or above Incentive spirometry Bronchodilators Monitor renal function Monitor electrolytes Supplement as needed Monitor hemoglobin Transfuse blood products as needed Restart Eliquis Obtain echocardiogram Obtain ultrasound of the lower extremities to rule out clots DVT prophylaxis Plan discussed with: Patient AJITH RODRIGUEZ MD Apr 11, 2025 18:32
--- NOTE | 2025-04-11 20:23 | DVHPN2 ---
Reviewed: Care Plan, H&P, Labs, Medications, Previous Orders, Radiology Changes from previous H/P or p: No Changes General: Per HPI Eyes: No Pain, No Vision change, No Conjunctivae inflammation, No Eyelid inflammation, No Other, No Redness ENT: No Ear pain, No Ear discharge, No Nose pain, No Nose discharge, No Nose congestion, No Mouth pain, No Mouth swelling, No Throat pain, No Throat swelling, No Other Cardiovascular: No Chest Pain, No Palpitations, No Orthopnea, No Paroxysmal Noc. Dyspnea, No Edema, No Lt Headedness, No Other Respiratory: No Cough, No Dry; Shortness of breath; No SOB with excertion, No Wheezing, No Hemoptysis, No Pleuritic Pain, No Sputum, No Other Gastrointestinal: No Nausea, No Vomiting, No Abdominal Pain, No Diarrhea, No Constipation, No Melena, No Hematochezia, No Other Genitourinary: No Dysuria, No Frequency, No Incontinence, No Hematuria, No Retention, No Other Musculoskeletal: other (Right knee immobilizer); No neck pain, No shoulder pain, No arm pain, No back pain, No hand pain, No leg pain, No foot pain Objective Vitals Vital Signs Date Time Temp Pulse Resp B/P (MAP) Pulse Ox O2 Delivery O2 Flow Rate FiO2 04/11/25 19:01 94 18 138/84 04/11/25 17:00 98.4 100 98.4 04/11/25 10:00 Nasal Cannula 3.0 04/11/25 10:00 32 Intake/Output Intake and Output 04/11/25 07:00 Intake Total 1160 ml Output Total 200 ml Balance 960 ml Intake Oral 860 ml Blood Product 300 ml Output Urine Total 200 ml # Voids 2 # Bowel Movements 1 General Appearance: Alert, Oriented X3, Cooperative, No acute distress HEENT: Atraumatic Cardiovascular: Normal S1, Normal S2 Extremities: No cyanosis, No edema Medications Current Medications Medications Dose Ordered Sig/Kathie Route Start Time Stop Time Status Last Admin Dose Admin Atorvastatin Calcium 20 mg HS PO 04/09/25 22:00 04/10/25 21:29 20 MG Hydralazine HCl 10 mg Q6HP PRN IV 04/09/25 18:45 Pantoprazole Sodium 40 mg DAILY IV 04/10/25 10:00 04/11/25 09:43 40 MG Acetaminophen/ Hydrocodone Bitart 1 tab Q4HP PRN PO 04/09/25 18:45 04/10/25 09:22 1 TAB Ondansetron HCl 4 mg Q4HP PRN IV 04/09/25 18:45 Docusate Sodium 100 mg BIDPRN PRN PO 04/09/25 18:45 Acetaminophen 650 mg Q6HP PRN PO 04/09/25 18:45 Nitroglycerin 0.4 mg Q5MINP PRN SL 04/09/25 19:15 Morphine Sulfate 2 mg Q30M PRN IV 04/09/25 19:15 Alprazolam 0.5 mg Q8HPRN PRN PO 04/09/25 21:15 04/11/25 20:13 0.5 MG Metoprolol Tartrate 25 mg BID PO 04/09/25 22:00 04/09/25 21:57 25 MG Aspirin 81 mg DAILY PO 04/10/25 10:00 04/10/25 09:23 81 MG Albuterol 2.5 mg Q4HPRN PRN NEB 04/09/25 21:15 Ipratropium Effie 0.5 mg Q4HPRN PRN NEB 04/09/25 21:15 Oxycodone/ Acetaminophen 2 tab Q6HP PRN PO 04/09/25 22:45 04/11/25 20:09 2 TAB Hydromorphone HCl 0.5 mg Q4HPRN PRN IV 04/10/25 00:45 04/11/25 17:59 0.5 MG Pregabalin 150 mg BID PO 04/10/25 03:09 04/11/25 09:42 150 MG Baclofen 20 mg TID PO 04/10/25 03:19 04/11/25 13:52 20 MG Furosemide 20 mg DAILY IV 04/11/25 10:00 04/11/25 09:43 20 MG Morphine Sulfate 2 mg Q2HPRN PRN IV 04/10/25 15:30 04/11/25 19:01 2 MG Apixaban 5 mg BID PO 04/11/25 22:00 Laboratory Results Laboratory Tests 04/11/25 14:25 Chemistry Test 04/11/25 14:25 Albumin 4.1 g/dL (3.2-4.8) Calcium Level 8.9 mg/dL (8.7-10.4) Total Protein 6.3 g/dL (5.7-8.2) LFT Test 04/11/25 14:25 Alanine Aminotransferase (ALT) 77 U/L (7-40) H Alkaline Phosphatase 162 U/L (46-116) H Aspartate Amino Transferase (AST) 53 U/L (13-40) H Total Bilirubin 0.4 mg/dL (0.2-1.0) Urinalysis Test 04/09/25 19:09 Urine Color Yellow (Yellow) Urine Clarity Clear (Clear) Urine pH 6.5 (5.0-9.0) Urine Specific [place] 1.026 (1.001-1.035) Urine Protein Trace (Negative) H Urine Ketones Negative (Negative) Urine Blood Negative /uL (Negative) Urine Nitrite Negative (Negative) Urine Bilirubin Negative (Negative) Urine Urobilinogen Normal mg/dL (Negative) Urine Leukocyte Esterase Negative /uL (Negative) Urine RBC None seen /hpf (0 - 4) Urine Microscopic WBC 2 /HPF (0-5) Urine Squamous Epithelial Cells Few /hpf (<5) Urine Bacteria None seen /hpf (None Seen) Urine Mucus Few (None Seen) Urine Glucose Normal mg/dL (Normal) Microbiology Microbiology Date/Time Source Procedure Growth Status 04/09/25 23:05 Nose MRSA Screen - Final Complete Labs and/or images reviewed: Labs reviewed by me, Image(s) reviewed by me Assessment/Plan Assessment/Plan The patient is a 44-year-old female with past medical history of PE, right septic knee, chronic pain syndrome, and respiratory failure who presented to [facility] ED for evaluation of generalized weakness. Patient reports in the last 5 days, she has been feeling very weak with exertional shortness of breath, tachycardic with minimal efforts with exertion. Patient appears very pale for the last one-week. Patient was sent by her home health nurse for hemoglobin obtained yesterday of 6.4. Patient was seen and evaluated in the ED, laboratory data shows WBC 4.3, hemoglobin 7.3, hematocrit 21.6, platelets 302, sodium 145, potassium 3.5, BUN 6, creatinine 0.92, glucose 110, calcium 8.8, magnesium 1.9, troponin 3, blood pressure 132/78, heart rate 82, temperature 98.3 F, O2 saturation 97% on oxygen. Chest x-ray show no acute cardiopulmonary disease. Symptomatic anemia, requiring transfusion Exertional dyspnea Anemia, unspecified Generalized weakness acute hypoxic resp failure, can be related to anemia 04/10/2025 pending GI evaluation pt requested pain medication for generalized pain. pt appears to know exactly which meds she wants. requesting for morphine 04/11/2025: GI offered EGD/colonoscopy but pt declined Plan discussed with: Patient Date of Service: Apr 11, 2025 Billing Provider: SUSAN LAU DO Common Visit Codes: [id number] INP/OBS CARE(HIGH) SUSAN LAU DO Apr 11, 2025 20:23
[2025-04-11] MEDS: APIXABAN 5 MG TAB PO SCH (21:45)
[2025-04-12] VITALS (7 sets, daily range): BP systolic 118–131; BP diastolic 83–98; PULSE 78–100; RESP 18–20; TEMP 97.5–98; O2SAT 94–99
[2025-04-12 13:39] LABS: Hematocrit 30.7 % (36.0-46.0); Hemoglobin 10.2 g/dL (12.2-16.2); Mean Corpuscular Hemoglobin 29.4 pg (28.0-32.0); Mean Corpuscular Volume 88.3 fL (80.0-100.0); Nucleated Red Blood Cells % 0.0 %
--- NOTE | 2025-04-12 13:50 | DVHDS2 ---
Discharge Summary Date of Admission Apr 09, 2025 at 19:05 Date of Discharge: Apr 12, 2025 Labs/Diagnostic Data: Laboratory Results Test 04/12/25 13:06 04/11/25 14:25 04/11/25 06:10 04/09/25 19:09 White Blood Count 3.9 10^3/uL (4.4-10.8) Red Blood Count 3.47 10^6/uL (4.0-5.20) Hemoglobin 10.2 g/dL (12.2-16.2) Hematocrit 30.7 % (36.0-46.0) Mean Corpuscular Volume 88.3 fL (80.0-100.0) Mean Corpuscular Hemoglobin 29.4 pg (28.0-32.0) Mean Corpuscular Hemoglobin Concent 33.3 g/dL (32.0-36.0) Red Cell Distribution Width 16.8 % (11.8-14.3) Platelet Count 356 10^3/uL (140-450) Mean Platelet Volume 8.0 fL (6.9-10.8) Neutrophils (%) (Auto) 54.5 % (37.0-80.0) Lymphocytes (%) (Auto) 32.8 % (10.0-50.0) Monocytes (%) (Auto) 8.3 % (0.0-12.0) Eosinophils (%) (Auto) 3.7 % (0.0-7.0) Basophils (%) (Auto) 0.7 % (0.0-2.0) Neutrophils # (Auto) 2.2 10 ^3/uL (1.6-8.6) Lymphocytes # (Auto) 1.3 10 ^3/uL (0.4-5.4) Monocytes # (Auto) 0.3 10 ^3/uL (0-1.3) Eosinophils # (Auto) 0.1 10 ^3/uL (0-0.8) Basophils # (Auto) 0 10 ^3/uL (0-0.2) Nucleated Red Blood Cells 0.0 % Iron Level 18 ug/dL (50-170) Total Iron Binding Capacity 381 ug/dL (250-425) Percent Iron Saturation 4.7 % (15-50) Vitamin B12 Level 230 pg/mL (211-911) Hepatitis A Antibody Total Positive (Negative) Hepatitis B Surface Antigen Negative (Negative) Hepatitis B Surface Antibody Negative (Negative) Hepatitis B Core Total Antibody Negative (Negative) Hepatitis C Antibody Negative (Negative) Stool Occult Blood Negative (Negative) Stool Occult Blood Sample #3 (Negative) Urine Color Yellow (Yellow) Urine Clarity Clear (Clear) Urine pH 6.5 (5.0-9.0) Urine Specific [place] 1.026 (1.001-1.035) Urine Protein Trace (Negative) Urine Ketones Negative (Negative) Urine Blood Negative /uL (Negative) Urine Nitrite Negative (Negative) Urine Bilirubin Negative (Negative) Urine Urobilinogen Normal mg/dL (Negative) Urine Leukocyte Esterase Negative /uL (Negative) Urine RBC None seen /hpf (0 - 4) Urine Microscopic WBC 2 /HPF (0-5) Urine Squamous Epithelial Cells Few /hpf (<5) Urine Bacteria None seen /hpf (None Seen) Urine Mucus Few (None Seen) Urine Glucose Normal mg/dL (Normal) Test 04/09/25 18:29 04/09/25 17:05 Lactic Acid Level 0.9 mmol/L (0.4-2.0) Troponin I High Sensitivity < 3 ng/L (</=34) Magnesium Level 1.9 mg/dL (1.6-2.6) Other Laboratory Tests 04/12/25 13:06 Brief Hx & Hospital Course: The patient is a 44-year-old female with past medical history of PE, right septic knee, chronic pain syndrome, and respiratory failure who presented to [facility] ED for evaluation of generalized weakness. Patient reports in the last 5 days, she has been feeling very weak with exertional shortness of breath, tachycardic with minimal efforts with exertion. Patient appears very pale for the last one-week. Patient was sent by her home health nurse for hemoglobin obtained yesterday of 6.4. Patient was seen and evaluated in the ED, laboratory data shows WBC 4.3, hemoglobin 7.3, hematocrit 21.6, platelets 302, sodium 145, potassium 3.5, BUN 6, creatinine 0.92, glucose 110, calcium 8.8, magnesium 1.9, troponin 3, blood pressure 132/78, heart rate 82, temperature 98.3 F, O2 saturation 97% on oxygen. Chest x-ray show no acute cardiopulmonary disease. Symptomatic anemia, requiring transfusion Exertional dyspnea Anemia, unspecified Generalized weakness acute hypoxic resp failure, can be related to anemia 04/10/2025 pending GI evaluation pt requested pain medication for generalized pain. pt appears to know exactly which meds she wants. requesting for morphine 04/11/2025: GI offered EGD/colonoscopy but pt declined : symptoms improved. discharged to home Condition at Discharge: Fair Final Diagnosis/Problems List see above Discharge Disposition: Home Discharge Instruct/Medications Diet: Cardiac 2g Na,low cholest Activity: No Restrictions, As Tolerated Scheduled Alprazolam (Xanax), 1 TAB PO BID, (Reported) Apixaban Base (Eliquis), 5 MG PO BID, (Reported) Atorvastatin Calcium (Lipitor), 1 TAB PO DAILY, (Reported) Baclofen (Baclofen), 10 MG PO Q8HR, (Reported) Furosemide (Lasix), 1 TAB PO DAILY, (Reported) Morphine Sulfate (Morphine Sulfate), 1 TAB PO BID, (Reported) Oxycodone W/ Acetaminophen (Percocet 5/325MG), 1 TAB PO BID, (Reported) Pregabalin (Lyrica), 1 CAP PO BID, (Reported) Miscellaneous Medications Cholecalciferol (Vitamin D), 5,000 UNIT OR, (Reported) Eszopiclone (Eszopiclone), 2 MG PO, (Reported) Ferrous Sulfate (Iron (Ferrous Sulfate)), 50 MG PO, (Reported) Fluoxetine HCl (Fluoxetine), 20 MG PO, (Reported) Polyethylene Glycol 3350 (Miralax), 17 GM PO, (Reported) Sennosides (Senna), 8.6 MG PO, (Reported) Discharge Statement: "Patient was advised to return to the ER or call 911 if any headaches, dizziness, shortness of breath, chest pain, abdominal pain, bleeding, fevers, or worsening of medical condition. Patient was counseled about treatment plan, medications, possible side effects, patientverbalized understanding. All questions were answered to the best of my ability. This discharge took greater then 30 minutes in planning, reviewing documentation, counseling the patient, and discussing with other team members." ASSESSMENT ASSESSMENT Assessment Date of Service: Apr 12, 2025 Billing Provider: SUSAN LAU DO Common Visit Codes: 20734-AWM/OBS DISCH DAY >30min SUSAN LAU DO Apr 12, 2025 13:50
[2025-04-12 13:58] LABS: Albumin 4.3 g/dL (3.2-4.8); Anion Gap 10 (5-15); BUN/Creatinine Ratio 9.9 (10.0-20.0); Bilirubin, Total 0.5 mg/dL (0.2-1.0); Calcium 9.3 mg/dL (8.7-10.4); Carbon Dioxide 28 mmol/L (20-31); Chloride 103 mmol/L (98-107); Potassium 3.7 mmol/L (3.5-5.1); Sodium 141 mmol/L (136-145); Total Protein 6.8 g/dL (5.7-8.2)
[2025-04-12 13:59] LABS: Alanine Aminotransferase 54 U/L (7-40); Alkaline Phosphatase 150 U/L (46-116); Blood Urea Nitrogen 7 mg/dL (9-23); Glucose 125 mg/dL (74-106)
--- NOTE | 2025-04-12 14:13 | DVHPN2 ---
Subjective No changes Patient is still asking for more pain meds Reviewed: Care Plan, H&P, Labs, Medications, Previous Orders, Radiology Changes from previous H/P or p: No Changes General: Per HPI Eyes: No Pain, No Vision change, No Conjunctivae inflammation, No Eyelid inflammation, No Other, No Redness ENT: No Ear pain, No Ear discharge, No Nose pain, No Nose discharge, No Nose congestion, No Mouth pain, No Mouth swelling, No Throat pain, No Throat swelling, No Other Cardiovascular: No Chest Pain, No Palpitations, No Orthopnea, No Paroxysmal Noc. Dyspnea, No Edema, No Lt Headedness, No Other Respiratory: No Cough, No Dry; Shortness of breath; No SOB with excertion, No Wheezing, No Hemoptysis, No Pleuritic Pain, No Sputum, No Other Gastrointestinal: No Nausea, No Vomiting, No Abdominal Pain, No Diarrhea, No Constipation, No Melena, No Hematochezia, No Other Genitourinary: No Dysuria, No Frequency, No Incontinence, No Hematuria, No Retention, No Other Musculoskeletal: other (Right knee immobilizer); No neck pain, No shoulder pain, No arm pain, No back pain, No hand pain, No leg pain, No foot pain Objective Vitals Vital Signs Date Time Temp Pulse Resp B/P (MAP) Pulse Ox O2 Delivery O2 Flow Rate FiO2 04/12/25 14:00 92 20 125/97 04/12/25 10:30 99 Nasal Cannula 3.0 04/12/25 10:30 32 04/12/25 05:00 97.5 97.5 Intake/Output Intake and Output 04/12/25 07:00 Intake Total 1958 ml Output Total 496 ml Balance 1462 ml Intake Oral 1958 ml Output Urine Total 496 ml # Voids 9 # Bowel Movements 1 Exam General: NAD, AAOX3 Chest: lung castorena clear to auscultation Heart: RRR, no murmur Abdomen: non-distended,+ [id number] lower abdominal tenderness to palpation, +BS General Appearance: Alert, Oriented X3, Cooperative, No acute distress HEENT: Atraumatic Cardiovascular: Normal S1, Normal S2 Extremities: No cyanosis, No edema Medications Current Medications Medications Dose Ordered Sig/Kathie Route Start Time Stop Time Status Last Admin Dose Admin Atorvastatin Calcium 20 mg HS PO 04/09/25 22:00 04/11/25 21:45 20 MG Hydralazine HCl 10 mg Q6HP PRN IV 04/09/25 18:45 Pantoprazole Sodium 40 mg DAILY IV 04/10/25 10:00 04/12/25 09:33 40 MG Acetaminophen/ Hydrocodone Bitart 1 tab Q4HP PRN PO 04/09/25 18:45 04/10/25 09:22 1 TAB Ondansetron HCl 4 mg Q4HP PRN IV 04/09/25 18:45 Docusate Sodium 100 mg BIDPRN PRN PO 04/09/25 18:45 Acetaminophen 650 mg Q6HP PRN PO 04/09/25 18:45 Nitroglycerin 0.4 mg Q5MINP PRN SL 04/09/25 19:15 Morphine Sulfate 2 mg Q30M PRN IV 04/09/25 19:15 Alprazolam 0.5 mg Q8HPRN PRN PO 04/09/25 21:15 04/12/25 04:42 0.5 MG Metoprolol Tartrate 25 mg BID PO 04/09/25 22:00 04/09/25 21:57 25 MG Aspirin 81 mg DAILY PO 04/10/25 10:00 04/10/25 09:23 81 MG Albuterol 2.5 mg Q4HPRN PRN NEB 04/09/25 21:15 Cancel Ipratropium [place] 0.5 mg Q4HPRN PRN NEB 04/09/25 21:15 Cancel Oxycodone/ Acetaminophen 2 tab Q6HP PRN PO 04/09/25 22:45 04/11/25 20:09 2 TAB Hydromorphone HCl 0.5 mg Q4HPRN PRN IV 04/10/25 00:45 04/12/25 14:00 0.5 MG Pregabalin 150 mg BID PO 04/10/25 03:09 04/12/25 09:31 150 MG Baclofen 20 mg TID PO 04/10/25 03:19 04/12/25 13:24 20 MG Furosemide 20 mg DAILY IV 04/11/25 10:00 04/12/25 09:33 20 MG Morphine Sulfate 2 mg Q2HPRN PRN IV 04/10/25 15:30 04/12/25 11:40 2 MG Apixaban 5 mg BID PO 04/11/25 22:00 04/12/25 09:31 5 MG Laboratory Results Laboratory Tests 04/12/25 13:06 Chemistry Test 04/11/25 14:25 04/12/25 13:06 Albumin 4.1 g/dL (3.2-4.8) 4.3 g/dL (3.2-4.8) Calcium Level 8.9 mg/dL (8.7-10.4) 9.3 mg/dL (8.7-10.4) Total Protein 6.3 g/dL (5.7-8.2) 6.8 g/dL (5.7-8.2) LFT Test 04/11/25 14:25 04/12/25 13:06 Alanine Aminotransferase (ALT) 77 U/L (7-40) H 54 U/L (7-40) H Alkaline Phosphatase 162 U/L (46-116) H 150 U/L (46-116) H Aspartate Amino Transferase (AST) 53 U/L (13-40) H 28 U/L (13-40) Total Bilirubin 0.4 mg/dL (0.2-1.0) 0.5 mg/dL (0.2-1.0) Urinalysis Test 04/09/25 19:09 Urine Color Yellow (Yellow) Urine Clarity Clear (Clear) Urine pH 6.5 (5.0-9.0) Urine Specific [place] 1.026 (1.001-1.035) Urine Protein Trace (Negative) H Urine Ketones Negative (Negative) Urine Blood Negative /uL (Negative) Urine Nitrite Negative (Negative) Urine Bilirubin Negative (Negative) Urine Urobilinogen Normal mg/dL (Negative) Urine Leukocyte Esterase Negative /uL (Negative) Urine RBC None seen /hpf (0 - 4) Urine Microscopic WBC 2 /HPF (0-5) Urine Squamous Epithelial Cells Few /hpf (<5) Urine Bacteria None seen /hpf (None Seen) Urine Mucus Few (None Seen) Urine Glucose Normal mg/dL (Normal) Microbiology Microbiology Date/Time Source Procedure Growth Status 04/09/25 23:05 Nose MRSA Screen - Final Complete Assessment/Plan Assessment/Plan Severe anemia Generalized weakness History of PE on Eliquis Transaminitis Plan: Discussed with Dr. Henderson Possible EGD discussed with patient again to be planned for tomorrow, at this time patient is refusing any GI procedures We will follow-up [facility] for elective EGD and colonoscopy Discharge planning ongoing Plan discussed with: Patient, Other (RN) Date of Service: Apr 12, 2025 Billing Provider: OTTO NIX Common Visit Codes: [id number] INP/OBS CARE(HIGH) OTTO NIX Apr 12, 2025 14:13
--- NOTE | 2025-04-12 15:27 | DVHPN2 ---
Progress Note - Dictate Date Seen: Apr 12, 2025 Medical Necessity Reason Pt with a Central, PICC or Fol: No vital signs Vital Sign Date Time Temp Pulse Resp B/P (MAP) Pulse Ox O2 Delivery O2 Flow Rate FiO2 04/12/25 14:30 99 20 125/98 04/12/25 13:00 98.0 97 98.0 04/12/25 10:30 Nasal Cannula 3.0 04/12/25 10:30 32 Total Intake and Output 04/11/25 04/11/25 04/12/25 15:00 23:00 07:00 Intake Total 1020 ml 938 ml Output Total 496 ml Balance 1020 ml 442 ml medications Current Medications Medications Dose Ordered Sig/Kathie Route Start Time Stop Time Status Last Admin Dose Admin Atorvastatin Calcium 20 mg HS PO 04/09/25 22:00 04/11/25 21:45 20 MG Hydralazine HCl 10 mg Q6HP PRN IV 04/09/25 18:45 Pantoprazole Sodium 40 mg DAILY IV 04/10/25 10:00 04/12/25 09:33 40 MG Acetaminophen/ Hydrocodone Bitart 1 tab Q4HP PRN PO 04/09/25 18:45 04/10/25 09:22 1 TAB Ondansetron HCl 4 mg Q4HP PRN IV 04/09/25 18:45 Docusate Sodium 100 mg BIDPRN PRN PO 04/09/25 18:45 Acetaminophen 650 mg Q6HP PRN PO 04/09/25 18:45 Nitroglycerin 0.4 mg Q5MINP PRN SL 04/09/25 19:15 Morphine Sulfate 2 mg Q30M PRN IV 04/09/25 19:15 Alprazolam 0.5 mg Q8HPRN PRN PO 04/09/25 21:15 04/12/25 04:42 0.5 MG Metoprolol Tartrate 25 mg BID PO 04/09/25 22:00 04/09/25 21:57 25 MG Aspirin 81 mg DAILY PO 04/10/25 10:00 04/10/25 09:23 81 MG Albuterol 2.5 mg Q4HPRN PRN NEB 04/09/25 21:15 Cancel Ipratropium [place] 0.5 mg Q4HPRN PRN NEB 04/09/25 21:15 Cancel Oxycodone/ Acetaminophen 2 tab Q6HP PRN PO 04/09/25 22:45 04/11/25 20:09 2 TAB Hydromorphone HCl 0.5 mg Q4HPRN PRN IV 04/10/25 00:45 04/12/25 14:00 0.5 MG Pregabalin 150 mg BID PO 04/10/25 03:09 04/12/25 09:31 150 MG Baclofen 20 mg TID PO 04/10/25 03:19 04/12/25 13:24 20 MG Furosemide 20 mg DAILY IV 04/11/25 10:00 04/12/25 09:33 20 MG Morphine Sulfate 2 mg Q2HPRN PRN IV 04/10/25 15:30 04/12/25 11:40 2 MG Apixaban 5 mg BID PO 04/11/25 22:00 04/12/25 09:31 5 MG laboratory and microbiology Laboratory Tests 04/12/25 13:06 Test 04/12/25 13:06 Range/Units Serum Glucose 125 H 74-106 mg/dL Assessment/Plan Impression Chronic oxygen dependency Recurrent pulmonary embolism Deconditioning Anemia Patient seen and examined Events Low oxygen requirements On 2 liters nasal cannula No distress Labs and imaging reviewed Chest x-ray unremarkable Management Supplemental oxygen Titrate to maintain sats 90% or above Incentive spirometry Bronchodilators Monitor renal function Monitor electrolytes Supplement as needed Monitor hemoglobin Transfuse blood products as needed Restart Eliquis DVT prophylaxis Plan discussed with: Patient AJITH RODRIGUEZ MD Apr 12, 2025 15:27
--- NOTE | 2025-04-13 09:20 | DVHSR ---
APPROVED REPORT EXAM: Two-dimensional and M-mode echocardiogram with Doppler and color Doppler. Blood Pressure: 130/82 mmHg INDICATION doctors request RISK FACTORS Height: 5'9, Weight: 176 DIMENSIONS LVDd3.6 (3.8-5.7cm)LA (2D)3.7 (1.9-4.0cm)Aortic Root3.4 (2.0-3.7cm) LVDs2.7 (2.5-4.0cm)LA (MM) (1.9-4.0cm)Aortic Cusp Exc1.7 (1.5-2.0cm) EF (%) 55.0 (55-70%)Rt. Atrium3.7 (1.9-4.0cm)Asc. Aorta cm IVSd1.3 (0.7-1.1cm)RV (D)4.4 (1.8-2.4cm) PWd0.9 (0.7-1.1cm) Mitral Valve MitralMitral Stenosis E wave0.62m/sMV Mean GR.mmHg A wave0.75m/sMV Peak GR.mmHg E/A ratio0.82D MVAcm2 DECEL [id number] 1/2 [place] Aortic Valve Aortic ValveAortic Stenosis V11.05m/Lucina Mean GR.4mmHg V21.14m/Lucina Peak GR.5mmHg LVOT Diameter2.1 (1.8-2.4cm)Doppler AVA3.19cm2 Tricuspid Valve TR Velocity1.90m/s [id number] Conclusion LV EF IS 55% AND IS NORMAL DYSKINESIS OF IVS MODERATELY DILATED RV NORMAL VALVES NO EFFUSION
== END 2025-04-12 15:30 | disposition home or self-care (01) | DRG 663 ==
LOC: ER 16:14 → OVERFLOW 19:05 → TELE-WESTW 20:39
PROVIDERS: ADMIT Internal Medicine; ATTEND Internal Medicine
PROC: 30233N1 Transfusion of Nonautologous Red Blood Cells into Peripheral Vein, Percutaneous Approach (ICD-10-PCS; principal; 2025-04-10)
DX: D62 Acute posthemorrhagic anemia (principal); J96.01 Acute respiratory failure with hypoxia; Z99.81 Dependence on supplemental oxygen; I10 Essential (primary) hypertension; G89.4 Chronic pain syndrome; Z79.01 Long term (current) use of anticoagulants; Z81.8 Family history of other mental and behavioral disorders; Z82.49 Family history of ischemic heart disease and other diseases of the circulatory system; Z83.3 Family history of diabetes mellitus; Z86.711 Personal history of pulmonary embolism; Z88.5 Allergy status to narcotic agent; Z79.899 Other long term (current) drug therapy
CPT/HCPCS: 36415; 36430; 71045; 76705; 80053; 81001; 82270; 82607; 83540; 83550; 83605; 83735; 84484; 85025; 86704; 86706; 86708; 86803; 86850; 86900; 86901; 86920; 87081; 87340; 93306; 93970; 96361; 96374; G0378; J2470